=== PATIENT | female | born 1985 | race American Indian/Alaskan Native ===

== ENCOUNTER 2017-04-15 06:32 | Emergency (ER) | payer MEDICAID ==
[2017-04-15 07:37] LABS: Alanine Aminotransferase 40 units/L (7-56); BUN/Creatinine Ratio 14.28; Bilirubin,Total < 0.20 mg/dL (0.1-1.2); Blood Urea Nitrogen 10 mg/dL (7-17); Calcium 9.2 mg/dL (8.4-10.2); Carbon Dioxide 24 mmol/L (22-30); Glucose 102 mg/dL (65-100)
[2017-04-15 07:38] LABS: Albumin 4.5 g/dL (3.9-5); Albumin/Globulin Ratio 1.4 %; Alkaline Phosphatase 67 units/L (35-129); Anion Gap 20 mmol/L; Chloride 102.1 mmol/L (98-107); Lipase 38 units/L (13-60); Potassium 3.8 mmol/L (3.6-5.0); Sodium 142 mmol/L (137-145); Total Protein 7.8 g/dL (6.3-8.2)
[2017-04-15 08:06] LABS: Basophils % (Auto) 0.4 % (0.0-1.8); Eosinophils % (Auto) 3.3 % (0.0-4.3); Hematocrit 35.6 % (30.3-42.9); Hemoglobin 11.6 gm/dl (10.1-14.3); Mean Corpuscular HGB Conc 33 % (30-34); Mean Corpuscular Hemoglobin 31 pg (28-32); Mean Corpuscular Volume 95 fl (79-97); Platelet Count 179 K/mm3 (140-440); Red Blood Count 3.76 M/mm3 (3.65-5.03); Red Cell Distribution Width 13.8 % (13.2-15.2); White Blood Count 7.5 K/mm3 (4.5-11.0)
[2017-04-15 09:28] LABS: Bilirubin,Urine NEG (Negative); Blood,Urine NEG (Negative); Ketones,Urine NEG (Negative); Leukocyte Esterase,Urine NEG (Negative); Mucus,Urine FEW /HPF; Nitrite,Urine NEG (Negative); Protein,Urine <15 mg/dL mg/dL (Negative)
[2017-04-15] MEDS ORDERED: MOTRIN PO ONE (10:14)
--- NOTE | 2017-04-15 10:16 | Emergency Department Report ---
ED Female HPI - General Chief complaint: Abdominal Pain Stated complaint: PELVIC PAIN Time Seen by Provider: 04/15/17 09:52 Source: patient Mode of arrival: Ambulatory Limitations: No Limitations - History of Present Illness Initial comments: PT c/o pelvic pain x 2 weeks. PT also reports a thick white vaginal discharge that does not itch. PT states her period is late. PT does report recent unprotected sex. PT states she did have chlamydia in 2008 but it was treated and she did not have any complications. MD Complaint: pelvic pain Onset/Timin -: week(s) Location: suprapubic Severity scale (0 -10): 8 Quality: cramping, sharp Consistency: constant Improves with: medication (Motrin 800 mg, last dose was yesterday at 1500 ) Last Menstrual Period: 03/12/17 EDC: 12/17/17 Associated Symptoms: vaginal discharge, abdominal pain, nausea/vomiting. denies : vaginal bleeding, dysuria, hematuria - Related Data Sexually active: Yes : 4 Para: 1 Previous Rx's Medication Instructions Recorded Last Taken Type Ibuprofen [Motrin] 600 mg PO Q8H PRN #15 tablet 04/15/17 Unknown Rx traMADol [Ultram] 50 mg PO Q6HR PRN #12 tablet 04/15/17 Unknown Rx Allergies Allergy/AdvReac Type Severity Reaction Status Date / Time Penicillins Allergy Anaphylaxis Verified 04/15/17 06:50 ED Review of Systems ROS: Stated complaint: PELVIC PAIN Other details as noted in HPI Comment: All other systems reviewed and negative Constitutional: denies: chills, fever Respiratory: denies: cough Gastrointestinal: abdominal pain, vomiting (x 1 yesterday). denies: nausea, diarrhea Genitourinary: discharge, abnormal menses, dyspareunia. denies: dysuria, frequency Musculoskeletal: denies: back pain ED Past Medical Hx - Surgical History Past Surgical History?: Yes Additional Surgical History: tonsilectony - Social History Smoking Status: Current Every Day Smoker Substance Use Type: Alcohol - Medications Home Medications: Home Medications Medication Instructions Recorded Confirmed Last Taken Type Ibuprofen [Motrin] 600 mg PO Q8H PRN #15 tablet 04/15/17 Unknown Rx traMADol [Ultram] 50 mg PO Q6HR PRN #12 tablet 04/15/17 Unknown Rx ED Physical Exam - General Limitations: No Limitations General appearance: alert, in no apparent distress - Head Head exam: Present: atraumatic, normocephalic, normal inspection - Eye Eye exam: Present: normal appearance, PERRL, EOMI. Absent: conjunctival injection - ENT ENT exam: Present: normal exam, normal external ear exam - Neck Neck exam: Present: normal inspection, full ROM - Respiratory Respiratory exam: Present: normal lung sounds bilaterally. 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 Absent: vaginal discharge, vaginal bleeding Bi-manual exam: Present: normal bi-manual exam, adnexal tenderness. Absent: cervical motion tendernes, adnexal mass, uterine enlargement, uterine tenderness - Extremities Exam Extremities exam: Present: normal inspection, full ROM - Back Exam Back exam: Present: normal inspection, full ROM. Absent: tenderness, CVA tenderness (R), CVA tenderness (L), muscle spasm, paraspinal tenderness, vertebral tenderness - Neurological Exam Neurological exam: Present: alert, oriented X3, normal gait - Psychiatric Psychiatric exam: Present: normal affect, normal mood - Skin Skin exam: Present: warm, dry, intact, normal color ED Course Vital Signs 04/15/17 04/15/17 04/15/17 06:41 14:10 14:11 Temperature 98.8 F 98.8 F Pulse Rate 88 71 69 Respiratory 18 20 18 Rate Blood Pressure 133/94 Blood Pressure 138/91 [Left] Blood Pressure 157/103 [Right] O2 Sat by Pulse 100 100 100 Oximetry - Reevaluation(s) Reevaluation #1: 04/15/17 10:18 PT aware of available lab work and is aware of plan of care. Reevaluation #2: 04/15/17 13:26 PT aware of US and wet prep findings. PT instructed on pelvic rest and need to follow up with [facility]. PT has no questions at this time. Will treat empirically for gc/ct as pt has a friable cervix on exam - Pulse Oximetry Interpretation Digit-Finger Initial Pulse Oximetry Readin Actions Taken: none ED Medical Decision Making - Lab Data Result diagrams: 04/15/17 06:54 04/15/17 06:54 Labs 04/15/17 04/15/17 04/15/17 06:54 06:54 06:54 WBC 7.5 RBC 3.76 Hgb 11.6 Hct 35.6 MCV 95 MCH 31 MCHC 33 RDW 13.8 Plt Count 179 Lymph % (Auto) 21.4 [place] % (Auto) 7.5 H Eos % (Auto) 3.3 Baso % (Auto) 0.4 Lymph # 1.6 [place] # 0.6 Eos # 0.2 Baso # 0.0 Seg Neutrophils % 67.4 Seg Neutrophils # 5.0 Sodium 142 Potassium 3.8 Chloride 102.1 Carbon Dioxide 24 Anion Gap 20 BUN 10 Creatinine 0.7 Estimated GFR > 60 BUN/Creatinine Ratio 14.28 Glucose 102 H Calcium 9.2 Total Bilirubin < 0.20 AST 32 ALT 40 Alkaline Phosphatase 67 Total Protein 7.8 Albumin 4.5 Albumin/Globulin Ratio 1.4 Lipase 38 HCG, Qual Negative Urine Color Urine Turbidity Urine pH Ur Specific [place] Urine Protein Urine Glucose (UA) Urine Ketones Urine Blood Urine Nitrite Urine Bilirubin Urine Urobilinogen Ur Leukocyte Esterase Urine WBC (Auto) Urine RBC (Auto) U Epithel Cells (Auto) Urine Mucus 04/15/17 08:10 WBC RBC Hgb Hct MCV MCH MCHC RDW Plt Count Lymph % (Auto) [place] % (Auto) Eos % (Auto) Baso % (Auto) Lymph # [place] # Eos # Baso # Seg Neutrophils % Seg Neutrophils # Sodium Potassium Chloride Carbon Dioxide Anion Gap BUN Creatinine Estimated GFR BUN/Creatinine Ratio Glucose Calcium Total Bilirubin AST ALT Alkaline Phosphatase Total Protein Albumin Albumin/Globulin Ratio Lipase HCG, Qual Urine Color Yellow Urine Turbidity Clear Urine pH 5.0 Ur Specific [place] 1.025 Urine Protein <15 mg/dl Urine Glucose (UA) Neg Urine Ketones Neg Urine Blood Neg Urine Nitrite Neg Urine Bilirubin Neg Urine Urobilinogen 4.0 Ur Leukocyte Esterase Neg Urine WBC (Auto) 1.0 Urine RBC (Auto) 2.0 U Epithel Cells (Auto) 1.0 Urine Mucus Few - Radiology Data Radiology results: report reviewed US pelvis - L ovarian cyst, echogenic endometrium - Differential Diagnosis uti, STD, vaginitis, prgnancy Critical Care Time: No Critical care attestation.: If time is entered above; I have spent that time in minutes in the direct care of this critically ill patient, excluding procedure time. ED Disposition Clinical Impression: Pelvic pain, Friable cervix, Left ovarian cyst Disposition: TO HOME OR SELFCARE Is pt being admited?: No Does the pt Need Aspirin: No Condition: Stable Instructions: Cervicitis (ED), Ovarian Cyst (ED), Abdominal Pain (ED) Additional Instructions: Follow up with [facility] in 2-3 days Return to the ED if worsening pain, fevers, vomiting or concerns No sex x 2 weeks Cultures have been done today, they should be resulted in the next 3-5 days No driving or Alcohol after taking Ultram for pain Prescriptions: Ibuprofen [Motrin] 600 mg PO Q8H PRN #15 tablet PRN Reason: Pain traMADol [Ultram] 50 mg PO Q6HR PRN #12 tablet PRN Reason: Pain Referrals: [facility] Depart [Outside] - 3-5 Days OLGA BURKS MD [Referring] - 3-5 Days NISH STILL MD [Staff Physician] - 3-5 Days PRIMARY [facility]ARE, [Primary Care Provider] - 3-5 Days Forms: Work/School Release Form(ED) Time of Disposition: 13:36
--- NOTE | 2017-04-15 12:33 | Ultrasound Report ---
Pelvic and transvaginal sonography: History: Left-sided pelvic pain. Findings: Uterus measures 10.2 x 5 x 6.2 cm. Endometrial thickness 11 mm. The distal part of the endometrium just above the lower uterine segment appears echogenic. No masses seen. Right ovary 2.9 x 1.5 x 3.3 cm. No mass. Left ovary 3.1 x 1.7 x 3.1 cm. Probable corpus luteal cyst measuring 1.9 cm in diameter left ovary. Minimal free fluid in the cul-de-sac. Impression: Cystic left ovary probably represents corpus luteal cyst. Echogenic endometrium as detailed above.
[2017-04-15] MEDS ORDERED: ZITHROMAX PO ONE (13:32)
[2017-04-15] MEDS ORDERED: GARAMYCIN IM ONE (13:32)
[2017-04-15 14:13] VITALS: BP 157/103
== END 2017-04-15 14:11 | disposition home or self-care (01) ==
LOC: ED 06:32
DX: N83.202 Unspecified ovarian cyst, left side (principal); R87.619 Unspecified abnormal cytological findings in specimens from cervix uteri; F17.200 Nicotine dependence, unspecified, uncomplicated; Z90.89 Acquired absence of other organs; Z88.0 Allergy status to penicillin
CPT/HCPCS: 36415; 76830; 80053; 81001; 83690; 84703; 85025; 87210; 87591; 93975; 96372; 99284; J1580